=== PATIENT | female | born 1945 | race African-American/Black ===

== ENCOUNTER 2018-10-13 15:48 | Inpatient (IN) | payer MEDICARE, MEDICAID ==
[~2018-10-13] VITALS: Ht 160 cm; Wt 46.7 kg
--- NOTE | 2018-10-13 15:50 | NUR ---
ED Nurse Note: pt was brought in by ambulance from [facility] c/o of edema of right ankle from fall on august, pt denies pain. per ems, pt was send in the ed by dr che for evaluation of the fx. pt is seen by ermd. will continue to monitor.
--- NOTE | 2018-10-13 15:54 | Emergency Room Report ---
History of Present Illness General Chief Complaint: Lower Extremity Injury Source: Patient, Medical Record, EMS Present Illness HPI 73-year-old female presents with right ankle pain that started 09/07/2018, patient had a fall, she was seen in outside hospital, she was splinted with a stirrup, she endorses right ankle pain worsened with movement, sharp in nature, severity is moderate, alleviated with rest, aggravated by movement. Patient brought to the hospital for operative management, patient currently has no complaints other than the right ankle pain. Allergies: Coded Allergies: ASPIRIN (Verified Allergy, Unknown, 10/13/18) Patient History Past Medical History: see triage record Last Menstrual Period: menopause Now: No Reviewed Nursing Documentation: PMH: Agreed; PSxH: Agreed Review of Systems All Other Systems: negative except mentioned in HPI Physical Exam Vital Signs Date Time Temp Pulse Resp B/P (MAP) Pulse Ox O2 Delivery O2 Flow Rate FiO2 10/13/18 15:43 98.1 78 16 135/83 (100) 97 Room Air Sp02 EP Interpretation: reviewed, normal General Appearance: well appearing, no apparent distress, alert Head: normocephalic, atraumatic Eyes: bilateral eye PERRL, bilateral eye EOMI ENT: uvula midline, moist mucus membranes Neck: supple, thyroid normal, supple/symm/no masses Respiratory: lungs clear, no respiratory distress, no retraction, no accessory muscle use Cardiovascular #1: normal peripheral pulses, regular rate, rhythm, no edema, no gallop, no murmur Gastrointestinal: non tender, soft, no guarding, no rebound Musculoskeletal: other - Lower extreme knee: 2+ PT DP, compartments are soft, tenderness to palpation medial malleolus, right ankle, minimal swelling, sensation is grossly intact, patient is able to fire EHL Neurologic: alert, oriented x3 Psychiatric: mood/affect normal Skin: no rash, warm/dry Medical Decision Making Diagnostic Impression: Primary Impression: Bimalleolar fracture of right ankle Qualified Codes: S82.841A - Displaced bimalleolar fracture of right lower leg , initial encounter for closed fracture ER Course 73-year-old female presents with right ankle pain, patient with a bimalleolar fracture, preoperative labs are ordered, blood work was drawn, x-rays show bimalleolar fracture, Ortho was consulted, patient to be admitted to med Surg Spoke with Dr. Fuentes who will admit patient Dr. Damián lala will consult Laboratory Tests Test 10/13/18 15:50 White Blood Count 4.6 K/UL (4.8-10.8) L Red Blood Count 4.13 M/UL (4.20-5.40) L Hemoglobin 11.9 G/DL (12.0-16.0) L Hematocrit 37.8 % (37.0-47.0) Mean Corpuscular Volume 92 FL (80-99) Mean Corpuscular Hemoglobin 28.9 PG (27.0-31.0) Mean Corpuscular Hemoglobin Concent 31.6 G/DL (32.0-36.0) L Red Cell Distribution Width 13.5 % (11.6-14.8) Platelet Count 180 K/UL (150-450) Mean Platelet Volume 6.6 FL (6.5-10.1) Neutrophils (%) (Auto) 41.4 % (45.0-75.0) L Lymphocytes (%) (Auto) 46.3 % (20.0-45.0) H Monocytes (%) (Auto) 8.6 % (1.0-10.0) Eosinophils (%) (Auto) 2.2 % (0.0-3.0) Basophils (%) (Auto) 1.4 % (0.0-2.0) Prothrombin Time 10.3 SEC (9.30-11.50) Prothrombin Time INR 1.0 (0.9-1.1) PTT 28 SEC (23-33) Sodium Level 141 MMOL/L (136-145) Potassium Level 4.1 MMOL/L (3.5-5.1) Chloride Level 107 MMOL/L (98-107) Carbon Dioxide Level 28 MMOL/L (21-32) Anion Gap 6 mmol/L (5-15) Blood Urea Nitrogen 7 mg/dL (7-18) Creatinine 0.8 MG/DL (0.55-1.30) Estimate Glomerular Filtration Rate mL/min (>60) Glucose Level 92 MG/DL (74-106) Calcium Level 9.7 MG/DL (8.5-10.1) Total Bilirubin 0.2 MG/DL (0.2-1.0) Aspartate Amino Transferase (AST) 28 U/L (15-37) Alanine Aminotransferase (ALT) 37 U/L (12-78) Alkaline Phosphatase 105 U/L (46-116) Total Protein 6.9 G/DL (6.4-8.2) Albumin 3.2 G/DL (3.4-5.0) L Globulin 3.7 g/dL Albumin/Globulin Ratio 0.9 (1.0-2.7) L EKG Diagnostic Results EKG Time: 15:53 EP Interpretation: NSR, rate 69, QTc 426, no acute ST elevations, normal axis Rate: normal Rhythm: NSR ST Segments: no acute changes Chest X-Ray Diagnostic Results Chest X-Ray Diagnostic Results : Chest X-Ray Ordered: Yes # of Views/Limited/Complete: 1 View Indication: Other - preop EP Interpretation: Yes Interpretation: no consolidation, no effusion, no pneumothorax, no acute cardiopulmonary disease Impression: No acute disease Electronically Signed by: Ernesto Carlos MD Other X-Ray Diagnostic Results Other X-Ray Diagnostic Results #1: X-Ray ordered: Right tibia fibula # of Views/Limited Vs Complete: 2 View Indication: Pain EP Interpretation: Yes Interpretation: other Impression: Other - Bimalleolar fracture Electronically Signed by: Ernesto Carlos MD Other X-Ray Diagnostic Results #2: X-Ray ordered: Right Ankle # of Views/Limited Vs Complete: 3 View Indication: Pain EP Interpretation: Yes Interpretation: other - BiMalleolar fracture Impression: Other - Bimalleolar fracture Electronically Signed by: Ernesto Carlos MD Last Vital Signs Date Time Temp Pulse Resp B/P (MAP) Pulse Ox O2 Delivery O2 Flow Rate FiO2 10/13/18 15:43 98.1 78 16 135/83 (100) 97 Room Air Disposition: ADMITTED INPATIENT Condition: Stable Ernesto Carlos MD Oct 13, 2018 15:54
--- NOTE | 2018-10-13 15:55 | NUR ---
ED Nurse Note: with new order from don, iv g 22 stablished on pt left wrsit, with good blood return, blood drawn and was sent to lab.
--- NOTE | 2018-10-13 15:56 | NUR ---
ED Nurse Note: xray on bedside
[2018-10-13] MEDS ORDERED: PEPCID AC20 M2 PO (16:04)
[2018-10-13] MEDS ORDERED: MILK OF MA400 MG/51 ORAL (16:04)
[2018-10-13] MEDS ORDERED: DICLOFENAC 1% (16:04)
[2018-10-13] MEDS ORDERED: FLEET ENEMA133 ML RECTAL (16:04)
[2018-10-13] MEDS ORDERED: LOVENOX10 M4 SUBQ (16:04)
[2018-10-13] MEDS ORDERED: BISACODYL5 MG RECTAL (16:04)
[2018-10-13] MEDS ORDERED: OXYBUTYNIN CHLOR5 M1 ORAL (16:04)
[2018-10-13] MEDS ORDERED: PLAVIX75 MG ORAL (16:04)
[2018-10-13] MEDS ORDERED: GABAPENTIN100 MG ORAL (16:04)
[2018-10-13] MEDS ORDERED: FLONASE ALLERG9.9 ML NS (16:04)
[2018-10-13] MEDS ORDERED: ATORVASTATIN CA40 MG ORAL (16:04)
[2018-10-13] MEDS ORDERED: NORCO 5-325 TA1 EACH ORAL (16:04)
[2018-10-13] MEDS ORDERED: DOCUSATE SODIU100 MG ORAL (16:04)
[2018-10-13] MEDS ORDERED: ZYRTEC10 MG ORAL (16:04)
[2018-10-13] MEDS ORDERED: ACETAMINOPHEN325 M1 ORAL (16:04)
--- NOTE | 2018-10-13 16:04 | NUR ---
ED Nurse Note: pt went to ct with tech
[2018-10-13 16:11] LABS: ANION GAP 6 mmol/L (5-15); BASOPHILS % (AUTO) 1.4 % (0.0-2.0); BLOOD UREA NITROGEN 7 mg/dL (7-18); CALCIUM 9.7 MG/DL (8.5-10.1); CARBON DIOXIDE 28 MMOL/L (21-32); CHLORIDE 107 MMOL/L (98-107); CREATININE 0.8 MG/DL (0.55-1.30); EOSINOPHILS % (AUTO) 2.2 % (0.0-3.0); HEMATOCRIT 37.8 % (37.0-47.0); HEMOGLOBIN 11.9 G/DL (12.0-16.0); LYMPHOCYTES % (AUTO) 46.3 % (20.0-45.0); MEAN CORPUSCULAR VOLUME 92 FL (80-99); MONOCYTES % (AUTO) 8.6 % (1.0-10.0); NEUTROPHILS % (AUTO) 41.4 % (45.0-75.0); PLATELET COUNT 180 K/UL (150-450); POTASSIUM 4.1 MMOL/L (3.5-5.1); RED BLOOD COUNT 4.13 M/UL (4.20-5.40); RED CELL DISTRIBUTION WIDTH 13.5 % (11.6-14.8); SODIUM 141 MMOL/L (136-145); WHITE BLOOD COUNT 4.6 K/UL (4.8-10.8)
[2018-10-13 16:15] LABS: ALANINE AMINOTRANSFERASE 37 U/L (12-78); ALBUMIN 3.2 G/DL (3.4-5.0); ALBUMIN/GLOBULIN RATIO 0.9 (1.0-2.7); ALKALINE PHOSPHATASE 105 U/L (46-116); ASPARTATE AMINO TRANSFERASE 28 U/L (15-37); BILIRUBIN,TOTAL 0.2 MG/DL (0.2-1.0)
--- NOTE | 2018-10-13 16:32 | NUR ---
ED Nurse Note: pt went back from ct with tech
--- NOTE | 2018-10-13 16:51 | NUR ---
ED Nurse Note: ermd on bedside talking with pt and pt daughter regarding the plan of care and the posible admission and pt able to verbalize understanding. will continue to monitor.
--- NOTE | 2018-10-13 17:53 | NUR ---
ED Nurse Note: pt complaining of pain on the iv site, iv dc and g 20 iserted to pt right ac, pt able to tolerate well. will continue to monitor.
--- NOTE | 2018-10-13 18:40 | NUR ---
NURSE NOTES: Dr. Fuentes called and ordered No DVT for contraindication, same code status from SNF, same diet from SNF, same meds from SNF. Noted and carried out.
--- NOTE | 2018-10-13 19:30 | NUR ---
ED Nurse Note: Patient was admited to [facility] due to Bimalleolar fracture. AAO x4, VSS at this time, skin is dry warm to touch. Patient was transfered via gurney, with all belongings.
--- NOTE | 2018-10-13 19:58 | NUR ---
NURSE NOTES: Pt received on gurney, alert and oriented X 4, reg diet, pt has cell phone and tablet at the bedside, daughter at the bedside, received report to continue same meds from the SNF, same code status, no dvt, etc.
[2018-10-13 20:00] VITALS: BP 133/85
[2018-10-13] MEDS ORDERED: HYDROcodone/Acetamin 10/325 tab ORAL PRN (21:00)
[2018-10-13] MEDS ORDERED: Fleet's Enema 133ml RECTAL PRN (21:00)
[2018-10-13] MEDS ORDERED: Milk of Magnesia 30ml Ud ORAL PRN (21:00)
[2018-10-13] MEDS: Atorvastatin 20mg tab ORAL SCH (22:31)
[2018-10-13] MEDS: HYDROcodone/Acetamin 5/325 tab ORAL PRN (22:32)
[2018-10-14] VITALS: BP 123/77
[2018-10-14 04:00] VITALS: BP 132/89
--- NOTE | 2018-10-14 07:15 | NUR ---
NURSE NOTES: WALKING ROUNDS DONE WITH OUTGOING RN. PATIENT AWAKE IN BED.RLE WITH SPLINT AND RAFAELA WRAP IN PLACE; C/D/I. CMS WNL. DENIES PAIN. QUESTIONS ANSWERED NEEDS MET. DISCUSSED PLAN OF CARE FO THE DAY.VERBALIZED UNDERSTANDING. BED IN LOWEST AND LOCKED POSITION. CALL LIGHT WITHIN REACH.
--- NOTE | 2018-10-14 07:32 | NUR ---
HAND-OFF: Report given to JACK Gardner.
[2018-10-14 08:00] VITALS: BP 139/94
[2018-10-14] MEDS: HYDROcodone/Acetamin 5/325 tab ORAL PRN ×2 (08:09→14:57)
[2018-10-14] MEDS: Oxybutynin 5mg tab ORAL SCH ×2 (09:24→18:15)
[2018-10-14] MEDS: Flonase Nasal Inhaler 16gm NASAL SCH (09:24)
[2018-10-14] MEDS: Docusate 100mg cap ORAL SCH ×2 (09:24→18:15)
[2018-10-14 11:52] LABS: BASOPHILS % (AUTO) 1.1 % (0.0-2.0); EOSINOPHILS % (AUTO) 2.1 % (0.0-3.0); HEMATOCRIT 34.7 % (37.0-47.0); LYMPHOCYTES % (AUTO) 39.2 % (20.0-45.0); MEAN CORPUSCULAR VOLUME 90 FL (80-99); MONOCYTES % (AUTO) 10.5 % (1.0-10.0); NEUTROPHILS % (AUTO) 47.1 % (45.0-75.0); PLATELET COUNT 171 K/UL (150-450); RED BLOOD COUNT 3.85 M/UL (4.20-5.40); RED CELL DISTRIBUTION WIDTH 13.4 % (11.6-14.8); WHITE BLOOD COUNT 4.1 K/UL (4.8-10.8)
[2018-10-14 12:00] VITALS: BP 123/81
[2018-10-14 16:00] VITALS: BP 127/83
--- NOTE | 2018-10-14 17:30 | NUR ---
NURSE NOTES: PATIENT REMAINS STABLE. REQUIRES NORCO 5 MG PO FOR PAIN MANAGEMENT OF RLE. SEEN BY DR. ERVIN. OBTAINED CONSENT FOR RIGHT ORIF FOR DR. DUNN. VSS AFEBRILE.
--- NOTE | 2018-10-14 17:44 | NUR ---
CASE MANAGEMENT: REVIEW 73Y/F BIBA FROM [facility] CC: EDEMA RIGHT ANKLE SI: BIMALLEOLAR FRACTURE OF RIGHT ANKLE T 98.1 HR 78 RR 16 BP 135/83 SAT 97% ROOM AIR WBC 4.6 X-RAY ANKLE PENDING IS: IV ACCESS / SALINE LOCK NPO PATIENT ADMITTED TO MED/SURG UNIT 10/13/2018 DCP: PATIENT IS FROM [facility]
--- NOTE | 2018-10-14 18:56 | NUR ---
HAND-OFF: Report given to KY SANTIAGO.
--- NOTE | 2018-10-14 19:20 | NUR ---
NURSE NOTES: Received report & pt from JACK Gardner. Pt lying in bed, a&ox4, in room air. No s/s of acute distress & no c/o pain at this time. Pt NPO after breakfast tomorrow for procedure & pt aware. Dressing C/D/I. IV site intact & S/L'd. Bed in lowest position, call light within reach. Will continue tomorrow.
[2018-10-14 20:00] VITALS: BP 133/82
[2018-10-14] MEDS: Atorvastatin 20mg tab ORAL SCH (20:41)
[2018-10-15 04:00] VITALS: BP 125/83
[2018-10-15] MEDS: D5 1/2NS 1,000 ML IV SCH ×3 (05:09→18:00)
--- NOTE | 2018-10-15 07:30 | NUR ---
HAND-OFF: Report given to JACK Roach. Rounds done. Pt in stable condition. Told pt that surgery will be @ 1700 today & pt verbalized understanding. Reminded pt NPO after breakfast.
--- NOTE | 2018-10-15 07:58 | NUR ---
NURSE NOTES: pt awake, able to make needs known. NPO status after breakfast reinforced. No complaints of pain at this time.
[2018-10-15 08:15] LABS: ANION GAP 10 mmol/L (5-15); BLOOD UREA NITROGEN 7 mg/dL (7-18); CALCIUM 9.7 MG/DL (8.5-10.1); CARBON DIOXIDE 26 MMOL/L (21-32); CHLORIDE 106 MMOL/L (98-107); CREATININE 0.8 MG/DL (0.55-1.30); POTASSIUM 3.9 MMOL/L (3.5-5.1); SODIUM 141 MMOL/L (136-145)
[2018-10-15] MEDS: Flonase Nasal Inhaler 16gm NASAL SCH (09:00)
[2018-10-15] MEDS: Oxybutynin 5mg tab ORAL SCH ×2 (09:00→18:42)
[2018-10-15] MEDS: Docusate 100mg cap ORAL SCH (09:00)
--- NOTE | 2018-10-15 11:00 | History and Physical Report ---
DATE OF ADMISSION: 10/13/2018 HISTORY OF PRESENT ILLNESS: The patient is being admitted for right distal tibial-fibular fracture, status post fall and syncope. The patient fractured it according to her in August of this year when she had a syncopal episode. It is on the right distal tibia fibula. Dr. Surendra Steel is consulted. The patient also has apparently history of alcohol abuse and history of seizure disorder, and according to the patient, has a history of status post CVA and hypertension, hyperlipidemia, and status post NV. The patient denies headache. Denies nausea, vomiting, or diarrhea. Does have pain in the right lower extremity due to fracture. Denies chest pain. PAST MEDICAL HISTORY: Significant for CAD, hypertension, hyperlipidemia, status post NV, status post TIA, history of alcoholic seizures, GERD, constipation, and hyperlipidemia. PAST SURGICAL HISTORY: Hysterectomy and left knee surgery. MEDICATIONS: Tylenol, Lipitor, , Colace, famotidine, gabapentin, and oxybutynin. ALLERGIES: . FAMILY HISTORY: Does have a history of diabetes and hypertension. SOCIAL HISTORY: She has history of alcohol abuse and history of smoking. No history of drug abuse. REVIEW OF SYSTEMS: HEENT: Denies headaches. RESPIRATORY: Denies shortness of breath. Denies cough. CARDIOVASCULAR: Denies chest pain or orthopnea. GASTROINTESTINAL: Denies nausea, vomiting, or diarrhea. EXTREMITIES: Has . CENTRAL NERVOUS SYSTEM: Denies change in vision or speech pattern. PHYSICAL EXAMINATION: VITAL SIGNS: Temperature 98.2, pulse 75, blood pressure 139/94. HEENT: PERRLA. NECK: Supple. No lymphadenopathy. CHEST: Clear to auscultation. CARDIOVASCULAR: Regular rate and rhythm. No murmurs or extra sounds. GASTROINTESTINAL: Soft, nontender, and nondistended. No organomegaly. EXTREMITIES: No edema. Reflexes are equal on both sides. . NEUROLOGIC: Oriented x2. . LABORATORY DATA: . ASSESSMENT AND PLAN: Right distal tibia fibular fracture. Orthopedic has been consulted. and I have also informed Dr. . That patient needs to be cleared by gamer, Dr. An and neurologist, Dr. Rajan procedure . Again, the clearance of this surgery will be deferred to Dr. An given the patient's cardiac history and 03:21 as well as we will defer to Dr. Rajan given history of CVA. consultants are Dr. Steel, Dr. Rajan and Dr. An. Akira Fuentes M.D. DR: JANETH JOB#: [id number] CC:
[2018-10-15 12:00] VITALS: BP 136/87
--- NOTE | 2018-10-15 12:08 | Cardiology Report ---
APPROVED REPORT EXAM: Two-dimensional and M-mode echocardiogram with Doppler and color Doppler. INDICATION OTHER M-Mode DIMENSIONS IVSd1.2 (0.7-1.1cm)Left Atrium (MM)3.6 (1.6-4.0cm) LVDd4.8 (3.5-5.6cm)Aortic Root2.9 (2.0-3.7cm) PWd1.1 (0.7-1.1cm)Aortic Cusp Exc.1.7 (1.5-2.0cm) IVSs1.6 cm LVDs3.2 (2.5-4.0cm) PWs1.4 cm Normal left ventricular chamber size, systolic function and wall motion . Left ventricular ejection fraction estimated to be 60-65%. No evidence left ventricular hypertrophy. No evidence of pericardial effusion. All other cardiac chamber sizes are within normal limits. Aortic valve calcification with normal cusp excursion . Mildly thickened mitral valve leaflets with normal excursion. Mild mitral annulus and aortic root calcification. Pulmonic valve not well visualized. IVC at normal size with physiologic collapse . A color flow and spectral Doppler study was performed and revealed: Mild aortic insufficiency . Mitral diastolic velocities suggest reduced left ventricular relaxation c/w mild LV diastolic dysfunction (Grade I ) Mild mitral regurgitation. Mild to moderate tricuspid regurgitation. Tricuspid systolic velocities suggests peak right ventricular systolic pressure of 20mmHg.
--- NOTE | 2018-10-15 12:49 | Cardiac Electrophysiology PN ---
Subjective Subjective patient seen and examined. Consult dictated.[id number] ECG NSR and no ischemia or old WA. Echo Nl EF 65% No clinical CHF Ok to proceed with ORIF right tib/fib Objective Last 24 Hour Vital Signs Date Time Temp Pulse Resp B/P (MAP) Pulse Ox O2 Delivery O2 Flow Rate FiO2 10/15/18 09:00 Room Air 10/15/18 04:00 98.1 77 15 125/83 (97) 97 10/14/18 21:00 Room Air 10/14/18 20:00 98.2 71 16 133/82 (99) 98 10/14/18 16:00 97.6 76 21 127/83 (98) 98 10/14/18 15:27 97.9 Intake and Output 10/14/18 10/15/18 18:59 06:59 Intake Total 716 ml 716 ml Output Total 350 ml Balance 716 ml 366 ml Intake Oral 716 ml 476 ml Other 240 ml Output Urine Total 350 ml # Voids 3 4 # Bowel Movements 3 2 Laboratory Tests Test 10/15/18 05:26 Sodium Level 141 MMOL/L (136-145) Potassium Level 3.9 MMOL/L (3.5-5.1) Chloride Level 106 MMOL/L (98-107) Carbon Dioxide Level 26 MMOL/L (21-32) Anion Gap 10 mmol/L (5-15) Blood Urea Nitrogen 7 mg/dL (7-18) Creatinine 0.8 MG/DL (0.55-1.30) Estimat Glomerular Filtration Rate mL/min (>60) Glucose Level 78 MG/DL (74-106) Calcium Level 9.7 MG/DL (8.5-10.1) Microbiology Date/Time Source Procedure Growth Status 10/13/18 18:03 Nasal Nares MRSA Culture - Final NO METHICILLIN RESISTANT STAPH AUREUS... Complete 10/13/18 18:03 Rectum VRE Culture - Final NO VANCOMYCIN RESISTANT ENTEROCOCCUS ... Resulted 10/13/18 18:03 Rectum Pending Resulted Jose An MD Oct 15, 2018 12:49
--- NOTE | 2018-10-15 15:27 | NUR ---
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 98.1 HR 73 RR 15 B/P 125/75 IS: IVF D5NS @ 125ML/HR DITROPAN PO PEPCID PO LOPRESSOR PO MED/SURG STATUS
[2018-10-15] MEDS ORDERED: Succinylcholine 20mg/ml 10ml vial ONE (15:40)
--- NOTE | 2018-10-15 15:40 | NUR ---
NURSE NOTES: Pt down for surgery , daughter is at bedside. IV patent, no complaints of pain. Name tag verified consent reviewed
--- NOTE | 2018-10-15 15:47 | Consultation ---
History of Present Illness General Chief Complaint: Lower Extremity Injury Present Illness Allergies: Coded Allergies: MEPERIDINE (Verified Allergy, Severe, Anaphylaxis, 10/14/18) Beef (Verified Allergy, Intermediate, 10/14/18) ELEVATES BLOOD PRESSURE RICE (Verified Allergy, Intermediate, 10/14/18) DOES NOT DIGEST WELL. ASPIRIN (Verified Allergy, Unknown, 10/13/18) Medication History Scheduled Atorvastatin Calcium* (Atorvastatin Calcium*), 40 MG ORAL BEDTIME, (Reported) Clopidogrel Bisulfate* (Plavix*), 75 MG ORAL DAILY, (Reported) Docusate Sodium* (Docusate Sodium*), 100 MG ORAL TWICE A DAY, (Reported) Famotidine (Pepcid Ac), 20 MG PO BIDAC, (Reported) Fluticasone Propionate (Flonase Allergy Relief), 9.9 ML NS DAILY, (Reported) Gabapentin* (Gabapentin*), 200 MG ORAL BEDTIME, (Reported) Oxybutynin Chloride (Oxybutynin Chloride), 5 MG ORAL BID, (Reported) Scheduled PRN Acetaminophen* (Acetaminophen 325MG Tablet*), 325 MG ORAL Q6H PRN for Mild Pain (Pain Scale 1-3), (Reported) Bisacodyl* (Dulcolax*), 10 MG RECTAL DAILY PRN for Constipation, (Reported) Cetirizine Hcl* (Zyrtec*), 10 MG ORAL DAILY PRN for Dry Eyes, (Reported) Hydrocodone Bit/Acetaminophen 5-325* ([place] 5-325*), 1 TAB ORAL Q6H PRN for Moderate Pain (Pain Scale 4-6), (Reported) Magnesium Hydroxide* (Milk Of Magnesia*), 30 ML ORAL DAILY PRN for Constipation, (Reported) Na Phos,M-B/Na Phos,Di-Ba* (Fleet Enema*), 133 ML RECTAL DAILY PRN for Constipation, (Reported) Miscellaneous Medications [diclofenac1% jel], (Reported) Discontinued Medications Enoxaparin* (Lovenox*), 40 MG SUBQ DAILY, (Reported) Discontinued Reason: MD discontinued med Patient History Healthcare decision maker Resuscitation status Full Code Advanced Directive on File Physical Exam Last 24 Hour Vital Signs Date Time Temp Pulse Resp B/P (MAP) Pulse Ox O2 Delivery O2 Flow Rate FiO2 10/15/18 09:00 Room Air 10/15/18 04:00 98.1 77 15 125/83 (97) 97 10/14/18 21:00 Room Air 10/14/18 20:00 98.2 71 16 133/82 (99) 98 10/14/18 16:00 97.6 76 21 127/83 (98) 98 Intake and Output 10/14/18 10/15/18 18:59 06:59 Intake Total 716 ml 716 ml Output Total 350 ml Balance 716 ml 366 ml Intake Oral 716 ml 476 ml Other 240 ml Output Urine Total 350 ml # Voids 3 4 # Bowel Movements 3 2 Laboratory Tests Test 10/15/18 05:26 Sodium Level 141 MMOL/L (136-145) Potassium Level 3.9 MMOL/L (3.5-5.1) Chloride Level 106 MMOL/L (98-107) Carbon Dioxide Level 26 MMOL/L (21-32) Anion Gap 10 mmol/L (5-15) Blood Urea Nitrogen 7 mg/dL (7-18) Creatinine 0.8 MG/DL (0.55-1.30) Estimat Glomerular Filtration Rate mL/min (>60) Glucose Level 78 MG/DL (74-106) Calcium Level 9.7 MG/DL (8.5-10.1) Height (Feet): 5 Height (Inches): 3.00 Weight (Pounds): 211 Medications Current Medications Medications (Trade) Dose Ordered Sig/Jos Route PRN Reason Start Time Stop Time Status Last Admin Dose Admin Acetaminophen (Tylenol) 650 mg Q6H PRN ORAL Mild Pain/Temp > 100.5 10/13/18 21:00 11/12/18 20:59 Acetaminophen/ Hydrocodone Bitart ([place] 10/325) 1 tab Q6H PRN ORAL Severe Pain (Pain Scale 7-10) 10/13/18 21:00 10/20/18 20:59 10/15/18 00:45 Acetaminophen/ Hydrocodone Bitart ([place] 5/325) 1 tab Q6H PRN ORAL Moderate Pain (Pain Scale 4-6) 10/13/18 21:00 10/20/18 20:59 10/14/18 14:57 Atorvastatin Calcium (Lipitor) 40 mg BEDTIME ORAL 10/13/18 22:00 11/12/18 21:59 10/14/18 20:41 Bisacodyl (Dulcolax) 10 mg DAILYPRN PRN RECTAL Constipation 10/14/18 04:00 11/13/18 03:59 Cetirizine HCl (ZyrTEC) 10 mg DAILYPRN PRN ORAL Seasonal allergies 10/13/18 21:00 11/12/18 20:59 Clopidogrel Bisulfate (Plavix) 75 mg DAILY ORAL 10/14/18 09:00 11/13/18 08:59 10/14/18 09:24 Dextrose/Sodium Chloride 1,000 ml @ 125 mls/hr Q8H IV 10/15/18 06:00 11/14/18 05:59 10/15/18 05:09 Docusate Sodium (Colace) 100 mg TWICE A DAY ORAL 10/14/18 09:00 11/13/18 08:59 10/14/18 18:15 Famotidine (Pepcid) 20 mg BIAC ORAL 10/14/18 06:30 11/13/18 06:29 10/15/18 06:00 Fluticasone Propionate (Flonase) 2 spray DAILY NASAL 10/14/18 09:00 11/13/18 08:59 10/14/18 09:24 Gabapentin (Neurontin) 200 mg BEDTIME ORAL 10/13/18 22:00 11/12/18 21:59 10/14/18 20:41 Magnesium Hydroxide (Mom) 30 ml DAILYPRN PRN ORAL Constipation 10/13/18 21:00 11/12/18 20:59 Metoprolol Succinate (Toprol XL) 25 mg DAILY ORAL 10/16/18 09:00 11/15/18 08:59 Non-Formulary Medication (Non-Formulary Med) 1 ea DAILY ORAL 10/14/18 09:00 11/13/18 08:59 UNV Oxybutynin Chloride (Ditropan) 5 mg BID ORAL 10/14/18 09:00 11/13/18 08:59 10/14/18 18:15 Sodium Phosphate (Fleet's Sodium Phosl Enema) 133 ml DAILYPRN PRN RECTAL Constipation 10/13/18 21:00 11/12/18 20:59 Assessment/Plan Assessment/Plan: Hematology Consultation REQ MD: Akira Fuentes DOS: 10/15/18 RFC: Pre-procedure anemia, leukopenia ID 73-year-old female well known to me presents with right ankle pain that started 09/07/2018, patient had a fall, she was seen in outside hospital, she was splinted with a stirrup, she endorses right ankle pain worsened with movement, sharp in nature, severity is moderate, alleviated with rest, aggravated by movement. Patient brought to the hospital for operative management, patient currently has no complaints other than the right ankle pain. Potentially to undergo repair by ortho, was consulted in regards to low wbc and anemia w/u at this time, may need epo use. Allergies: ASPIRIN (Verified Allergy, Unknown, 10/13/18) Past Medical History: see triage record Last Menstrual Period: menopause Now: No Reviewed Nursing Documentation: PMH: Agreed; PSxH: Agreed Review of Systems All Other Systems: negative except mentioned in HPI Physical Exam Physical Exam: Vitals: reviewed General Appearance: NAD HEENT: normocephalic, atraumatic Neck: non-tender, normal alignment Respiratory/Chest: normal breath sounds bilaterally Cardiovascular/Chest: normal peripheral pulses, normal rate Abdomen: normal bowel sounds, soft, nontender Extremities: normal range of motion, Lower extreme knee: 2+ PT DP, compartments are soft, tenderness to palpation medial malleolus, right ankle, minimal swelling, sensation is grossly intact, patient is able to fire EHL Neurologic: alert, oriented x3 Labs: reviewed Imaging: noted Assessment and Recs: # Anemia of chronic disease (or of iron deficiency) due to underlying chronic medical issues, multifactorial --> Anemia workup has been ordered, rule out gi bleed --> No evidence of hemolysis is noted, peripheral smear has been reviewed. --> Hgb goal >7. Transfuse prn. --> Epogen or iron at this time is not particularly indicated (if hgb downtrends consider use of epogen/procrit) pre procedure --> Medications have been reviewed --> low threshold for gi evaluation in case has occult + # Leukopenia -- multiple etiologies could be related to underlying liver disease , medication-induced, infection versus viral syndrome --> peripheral smear has been ordered and does not show significant abnormalities --> Medications have been reviewed (can be due to lipitor) --> Continue to monitor for improvement, trend cbc --> Hep panel and HIV have been ordered --> US abd ordered to r/o cirrhosis and hepatosplenomegaly --> reverse isolation if ANC is <2000 # Bimalleolar fracture of right ankle - Displaced bimalleolar fracture of right lower leg, initial encounter for closed fracture --> per ortho management as with Dr. Steel # Hypoalbunenkia --> recommend improved po intake --> may need mirtazapine after sx # DVT ppx hep sq after sx The timing of this note does not necessarily reflect the time of the patient was seen. GREATLY APPRECIATE CONSULTATION. Tone Lenz MD Oct 15, 2018 15:47
[2018-10-15] MEDS ORDERED: NeoSporin Gu Irrig 1ml Amp IRRIG ONE (16:04)
[2018-10-15] MEDS ORDERED: Bacitracin 50000 Units Vial ONE (16:04)
[2018-10-15] MEDS ORDERED: Bupivacaine 0.25% Inj 30ml INJ ONE (16:04)
--- NOTE | 2018-10-15 16:37 | Operative Note - PDOC ---
Operative Note Operative Note Pre-op Diagnosis: right ankle fracture Procedure: see op report Post-op Diagnosis: same as pre-op plus Operative Findings: consistent w/pre-op dx studies Anesthesia: general Specimen: none Complications: none Condition: stable Estimated Blood Loss: minimal Implant(s) used?: Yes Andrew Steel MD Oct 15, 2018 16:37
--- NOTE | 2018-10-15 16:37 | Pre-Procedure Note/Attestation ---
Pre-Procedure Note/Attestation Complete Prior to Procedure Planned Procedure: right Procedure Narrative: ankle orif Indications for Procedure Pre-Operative Diagnosis: right ankle fracture Attestation I attest that I discussed the nature of the procedure; its benefits; risks and complications; and alternatives (and the risks and benefits of such alternatives ), prior to the procedure, with the patient (or the patient's legal pharmaceutical sales representative). I attest that, if there was a reasonable possibility of needing a blood transfusion, the patient (or the patient's legal pharmaceutical sales representative) was given the [facility] standardized written summary, pursuant to the [place] Blood Safety Act ([place] Health and Safety Code # 1645, as amended). I attest that I re-evaluated the patient just prior to the surgery and that there has been no change in the patient's H&P, except as documented below: Andrew Steel MD Oct 15, 2018 16:37
[2018-10-15] MEDS ORDERED: HYDROmorphone 1mg/ml Carpuject SUBQ PRN (16:45)
[2018-10-15] MEDS ORDERED: HYDROcodone/Acetamin 5/325 tab ORAL PRN (16:45)
[2018-10-15] MEDS ORDERED: Hydromorphone 0.5mg/0.5ml inj SUBQ PRN (16:45)
--- NOTE | 2018-10-15 17:55 | Anethesia Preoperative Eval ---
Anesthesia Pre-op PMH/ROS General Date of Evaluation: Oct 15, 2018 Time of Evaluation: 17:35 Anesthesiologist: tr ASA Score: ASA 3 Mallampati Score Class I : Soft palate, uvula, fauces, pillars visible Class II: Soft palate, uvula, fauces visible Class III: Soft palate, base of uvula visible Class IV: Only hard plate visible Mallampati Classification: Class III Surgeon: yovany Diagnosis: exam Surgical Procedure: exam under anesthesia Anesthesia History: none Family History: no anesthesia problems Allergies: Coded Allergies: MEPERIDINE (Verified Allergy, Severe, Anaphylaxis, 10/14/18) Beef (Verified Allergy, Intermediate, 10/14/18) ELEVATES BLOOD PRESSURE RICE (Verified Allergy, Intermediate, 10/14/18) DOES NOT DIGEST WELL. ASPIRIN (Verified Allergy, Unknown, 10/13/18) Patient NPO?: Yes NPO Date: Oct 15, 2018 NPO Time: 0930 Past Medical History Cardiovascular: Reports: HTN, other - seizure Endocrine: Reports: DM Other: obesity PSxH Narrative: left knee surgery Anesthesia Pre-op Phys. Exam Physician Exam Last Vital Signs Date Time Temp Pulse Resp B/P (MAP) Pulse Ox O2 Delivery O2 Flow Rate FiO2 10/15/18 12:00 98.2 76 20 136/87 (103) 98 10/15/18 09:00 Room Air Constitutional: NAD Neurologic: CN 2-12 intact Cardiovascular: RRR Respiratory: CTA Gastrointestinal: S/NT/ND Airway Exam Mallampati Score: Class III MO: full ROM: full Dentures: no upper, no lower Anesthesia Pre-op A/P Labs Chemistry Test 10/15/18 05:26 Sodium Level 141 MMOL/L (136-145) Potassium Level 3.9 MMOL/L (3.5-5.1) Chloride Level 106 MMOL/L (98-107) Carbon Dioxide Level 26 MMOL/L (21-32) Anion Gap 10 mmol/L (5-15) Blood Urea Nitrogen 7 mg/dL (7-18) Creatinine 0.8 MG/DL (0.55-1.30) Estimat Glomerular Filtration Rate mL/min (>60) Glucose Level 78 MG/DL (74-106) Calcium Level 9.7 MG/DL (8.5-10.1) Studies Pre-op Studies: EKG - sr Risk Assessment & Plan Assessment: general [place],Janis Bird [employer]AN Oct 15, 2018 17:55
--- NOTE | 2018-10-15 17:56 | Immediate Post-Op Evaluation ---
Immediate Post-Op Evalulation Immediate Post-Op Evalulation Procedure: exam under anesthesia Date of Evaluation: Oct 15, 2018 Time of Evaluation: 17:55 Nausea: No Vomiting: No Complications none Patient Status: awake, reacts, patent Hydration Status: adequate Drug: xray in the OR Janis Shipley CRNA Oct 15, 2018 17:56
--- NOTE | 2018-10-15 18:15 | NUR ---
NURSE NOTES: Pt remains off unit , surgery phoned to provide information that surgery did not occur. Awaiting report
--- NOTE | 2018-10-15 18:28 | NUR ---
NURSE NOTES: pt returned from surgery unit no procedure rendered. Dr Steel splint the area per report, fracture is old.
--- NOTE | 2018-10-15 19:36 | 48 Hour Post Anesthesia Eval ---
Post Anesthesia Evaluation Procedure: exam under anesthesia Date of Evaluation: Oct 15, 2018 Time of Evaluation: 19:35 Blood Pressure Systolic: 136 0: 87 Pulse Rate: 75 Respiratory Rate: 14 Airway: patent Nausea: No Vomiting: No Hydration Status: adequate Cardiopulmonary Status: stable Mental Status/LOC: patient returned to baseline Post-Anesthesia Complications: none Follow-up care needed: N/A Janis Shipley CRNA Oct 15, 2018 19:36
--- NOTE | 2018-10-15 19:45 | NUR ---
NURSE NOTES: Pt escorted to bedside commode. Daughter is at bedside. Follow up made with daughter for diflununac, pain gel. Pt states she does not want to inconvenience daughter to get the gel and does not needs it. Breathing room air stable condition per pt pain level is going down fast after [place] use
--- NOTE | 2018-10-15 19:45 | Consultation ---
DATE OF CONSULTATION: 10/15/2018 CARDIOLOGY CONSULTATION REASON FOR CONSULTATION: Management of hypertension and preoperative clearance. HISTORY OF PRESENT ILLNESS: The patient is a 73-year-old lady with history of hypertension, hyperlipidemia, and history of questionable myocardial infarction, as well as history of TIA and seizures and hyperlipidemia, was admitted after she had a fall resulting in right distal tibia-fibular fracture. The patient, in August of this year, had a fall as well and fractured it. It is on the distal right tibia-fibula. The patient was evaluated by Dr. Andrew Steel. Cardiology clearance is requested prior to the surgery. REVIEW OF SYSTEMS: Negative other than what was mentioned in the history of present illness. PAST MEDICAL HISTORY: As mentioned above. FAMILY HISTORY: Noncontributory. SOCIAL HISTORY: She lives at home. Does not smoke or drink alcohol. PHYSICAL EXAMINATION: VITAL SIGNS: Show blood pressure of 135/83, pulse 87, respirations 18, and she is afebrile. HEAD AND NECK: Shows no JVD or carotid bruits. LUNGS: Clear. CARDIOVASCULAR: Shows regular S1 and S2 with no gallop or murmur. ABDOMEN: Soft. EXTREMITIES: No pitting edema. Her right leg is in immobilizer. LABORATORY DATA: Labs show white count of 4.1, hemoglobin 11, hematocrit 34.7, and platelet count of 171,000. Sodium 141, potassium 3.9, BUN of 7, and creatinine 0.8. Her INR is 1. Her 12-lead EKG showed normal sinus rhythm and has a normal electrocardiogram. Her echocardiogram showed normal left ventricular systolic function with EF of 65%. ASSESSMENT/PLAN: 1. Hypertension. Blood pressure currently is stable. I will start the patient on low-dose beta-krystal to decrease the risk of postop atrial fibrillation. 2. Right tibia-fibula fracture after a fall. It is not clear whether the patient had syncope or it was a seizure episode. The patient's EKG is completely normal and her echocardiogram showed normal left ventricular systolic function. The patient is lying flat in bed without any shortness of breath. The patient is stable from cardiac standpoint to undergo the above-mentioned surgery. 3. Hyperlipidemia. On Lipitor 40 mg daily. 4. Questionable coronary artery disease. The patient is on Plavix and Lipitor. The patient denies any prior myocardial infarction and her EKG does not show any prior myocardial infarctions and is nonischemic. 5. History of seizure disorder. Thank you very much, Dr. Fuentes, for allowing me to participate in the care of this patient. Please do not hesitate to contact me for any questions regarding my evaluation. Jose An M.D. DR: JOHN JOB#: [id number] CC:
--- NOTE | 2018-10-15 19:48 | NUR ---
NURSE NOTES: Received patient in bed, awake, alert, oriented x4, able to make her needs known, patient is able to use a bedside commode, on room air, non weight bearing on the right ankle , VSS, afebrile. IV site clean, dry and intact. No acute distress noted, VSS, afebrile. Call light is within reach, bed is in low position, locked and alarm is on. Will continue to monitor for comfort and safety.
--- NOTE | 2018-10-15 19:48 | NUR ---
HAND-OFF: Report given to Rose SANTIAGO.
[2018-10-15 20:00] VITALS: BP 134/81
[2018-10-15] MEDS: Atorvastatin 20mg tab ORAL SCH (20:50)
--- NOTE | 2018-10-15 23:01 | General Progress Note ---
Assessment/Plan Problem List: (1) Bimalleolar fracture of right ankle ICD Codes: S82.841A - Displaced bimalleolar fracture of right lower leg, initial encounter for closed fracture SNOMED: 131237079 Qualifiers: Qualified Codes: S82.841A - Displaced bimalleolar fracture of right lower leg, initial encounter for closed fracture Status: progressing Assessment/Plan: dr pedroza took to or and told me that joint was stable and no surgey needed to be done pain control consulted podiatry for dista tib fib fracture Subjective ROS Limited/Unobtainable: Yes Allergies: Coded Allergies: MEPERIDINE (Verified Allergy, Severe, Anaphylaxis, 10/14/18) Beef (Verified Allergy, Intermediate, 10/14/18) ELEVATES BLOOD PRESSURE RICE (Verified Allergy, Intermediate, 10/14/18) DOES NOT DIGEST WELL. ASPIRIN (Verified Allergy, Unknown, 10/13/18) Objective Last 24 Hour Vital Signs Date Time Temp Pulse Resp B/P (MAP) Pulse Ox O2 Delivery O2 Flow Rate FiO2 10/15/18 21:51 Room Air 10/15/18 20:00 98.9 81 18 134/81 (98) 10/15/18 19:36 75 14 10/15/18 12:00 98.2 76 20 136/87 (103) 98 10/15/18 09:00 Room Air 10/15/18 04:00 98.1 77 15 125/83 (97) 97 Intake and Output 10/14/18 10/15/18 19:00 07:00 Intake Total 716 ml 716 ml Output Total 350 ml Balance 716 ml 366 ml Intake Oral 716 ml 476 ml Other 240 ml Output Urine Total 350 ml # Voids 3 4 # Bowel Movements 3 2 Laboratory Tests 10/15/18 05:26: Sodium Level 141, Potassium Level 3.9, Chloride Level 106, Carbon Dioxide Level 26, Anion Gap 10, Blood Urea Nitrogen 7, Creatinine 0.8, Estimat Glomerular Filtration Rate , Glucose Level 78, Calcium Level 9.7 Height (Feet): 5 Height (Inches): 3.00 Weight (Pounds): 211 Neck: supple Cardiovascular: normal rate Respiratory/Chest: lungs clear Akira Fuentes MD Oct 15, 2018 23:01
[2018-10-15] MEDS: ceFAZolin sod 1 GM in D5W 55 ML IV SCH (23:16)
[2018-10-16] VITALS: BP 129/79
--- NOTE | 2018-10-16 00:15 | Consultation ---
DATE OF CONSULTATION: SUBJECTIVE: The patient is a 73-year-old female who was seen at outside facility diagnosed with left ankle fracture. Subsequently, she was placed in a splint subsequently was brought in to the ER. Orthopedic consultation was obtained for further care and recommendation. PAST MEDICAL HISTORY: Significant for coronary artery disease, hypertension, hyperlipidemia, TIA, alcoholic seizure disorder, GERD. Diabetes. PAST SURGICAL HISTORY: Hysterectomy. MEDICATIONS: Chart. ALLERGIES: None. FAMILY HISTORY: Noncontributory. PHYSICAL EXAMINATION: GENERAL: The patient is alert and oriented. She is resting comfortably on bed. VITAL SIGNS: Afebrile. Stable vital signs. EXTREMITIES: Right ankle examination shows a coaptation brace in place. There is lateral medial malleolus. Posterior calf is soft. No skin blisters. IMAGING STUDIES: Show a bimalleolar ankle fracture. Mortise is well maintained. DISCUSSION: At this point, given her situation would recommend her diabetes I think it is going to be difficult to mobilize her in a short-leg cast. She is relatively healthy and pretty alert and oriented. She does have some issues with her right and left knee. At this point, had gone over treatment options, one option is cast immobilization and given the diabetes, it may take several months to weeks for this to heal. Alternatively, we can consider open reduction and fixation with plate fixation of the lateral malleolus and screw fixation of medial malleolus provide her adequate mobilization in terms of weightbearing. She is leaning more towards fixing it. Risks, limitations, expectations, and complications of procedure were discussed in detail. All questions addressed. We will proceed with surgery based, which was going forward. Andrew Steel M.D. DR: Luciana JOB#: [id number] CC:
--- NOTE | 2018-10-16 01:00 | Operative Note - Dictated ---
DATE OF OPERATION: 10/15/2018 PREOPERATIVE DIAGNOSIS: Right lateral ankle fracture dislocation. POSTOPERATIVE DIAGNOSIS: Right lateral ankle fracture dislocation. PROCEDURE: 1.Manipulation under anesthesia, right ankle fracture. 2. Closed reduction and treatment of right bimalleloar ankle fracture SURGEON: Andrew Steel M.D. ANESTHESIA: MAC. INDICATION OF THE PROCEDURE: The patient is a 73-year-old female, who approximately 5 weeks ago sustained an ankle fracture. The patient was having difficulty and pain. She had a possible delayed healing nonunion given the comorbidities and the fact that it was 5 weeks. I discussed whether that we proceeded with examination of anesthesia with external rotation if there was displacement or widening of the mortise. We will proceed with formal open reduction and internal fixation at the mortise was well maintained we continue conservative treatment given that it has been already 5 weeks. DESCRIPTION OF PROCEDURE: After informed consent was obtained the patient was placed under monitored anesthesia control. The patient was carefully placed in the operating room table. Imaging studies of the ankle were then performed, which showed a distal fibula, transverse fibula fracture with a fracture of the medial malleolus space was relatively well-maintained both the medial lateral gutters. Once this was confirmed external rotation drawer test was performed. The patient did discomfort however there was no widening of the clear space. ASSESSMENT: Right ankle fracture dislocation. DISCUSSION: At this point, given that she does have gross displacement the like the fracture is healing but is not completely healed. She is little slow to heal given her comorbidities and therefore what I recommend is continue immobilization in a CAM walker boot and nonweightbearing for another 3 weeks. At that point, we can repeat the imaging studies. If there is further callus formation across the fracture site or from a clinical point of view she has decreased pain particularly the medial lateral fracture sites then she can begin some gradual weightbearing. She has some unclear history of diabetes and then may make it difficult to begin physical therapy and weightbearing as good as we would like. Andrew Steel M.D. DR: Luciana JOB#: [id number] CC: MARNI
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
[2018-10-16 04:00] VITALS: BP 140/83
[2018-10-16] MEDS: D5 1/2NS 1,000 ML IV SCH (05:40)
[2018-10-16] MEDS: ceFAZolin sod 1 GM in D5W 55 ML IV SCH (06:00)
[2018-10-16 06:20] LABS: EOSINOPHILS % (AUTO) 2.3 % (0.0-3.0); HEMATOCRIT 34.1 % (37.0-47.0); HEMOGLOBIN 10.8 G/DL (12.0-16.0); LYMPHOCYTES % (AUTO) 40.4 % (20.0-45.0); MEAN CORPUSCULAR VOLUME 92 FL (80-99); MONOCYTES % (AUTO) 9.4 % (1.0-10.0); NEUTROPHILS % (AUTO) 44.9 % (45.0-75.0); PLATELET COUNT 169 K/UL (150-450); RED BLOOD COUNT 3.73 M/UL (4.20-5.40); RED CELL DISTRIBUTION WIDTH 14.4 % (11.6-14.8); WHITE BLOOD COUNT 4.5 K/UL (4.8-10.8)
[2018-10-16 06:24] LABS: ANION GAP 5 mmol/L (5-15); BLOOD UREA NITROGEN 8 mg/dL (7-18); CALCIUM 9.2 MG/DL (8.5-10.1); CARBON DIOXIDE 27 MMOL/L (21-32); CHLORIDE 110 MMOL/L (98-107); CREATININE 0.7 MG/DL (0.55-1.30); POTASSIUM 3.8 MMOL/L (3.5-5.1); SODIUM 142 MMOL/L (136-145)
--- NOTE | 2018-10-16 06:58 | NUR ---
HAND-OFF: Report given to Mike SANTIAGO.
--- NOTE | 2018-10-16 07:39 | NUR ---
NURSE NOTES: Received report from JACK Rose. The patient is sleeping on the bed without acute distress or shortness of breath. The patient's right ankle cast is clean and intact, and circulation on right foot is intact. Per night nurse, DVT prophylaxis is contraindicated per Dr. Fuentes but will follow up. Per night nurse, the patient did not do surgery for right ankle fracture on 10/15/2018 since it is not active but healing fracture. IV is intact and patent. The patient's bed in the lowest position, call light in reach, and fall and aspiration precaution reinforced. Will continue plan of care.
[2018-10-16 08:00] VITALS: BP 161/95
--- NOTE | 2018-10-16 08:23 | NUR ---
NURSE NOTES: Per Dr. Lenz's note, heparin sc for dvt prophylasix after surgery. The patient got cancelled for the surgery on 10/15/2018. Notified Dr. Lenz regarding cancellation of the surgery. Will carry out the order as soon as receives it. Will continue plan of care.
--- NOTE | 2018-10-16 08:30 | NUR ---
NURSE NOTES: Dr. Lenz ordered Heparin 5000 unit sq q8hr for DVT prophylaxis. Will carry out the order.
[2018-10-16] MEDS ORDERED: Docusate Sod/Senna tab ORAL SCH (09:00)
[2018-10-16] MEDS: Oxybutynin 5mg tab ORAL SCH ×2 (09:03→17:29)
[2018-10-16] MEDS: Docusate 100mg cap ORAL SCH ×3 (09:03→17:29)
[2018-10-16] MEDS: Flonase Nasal Inhaler 16gm NASAL SCH (09:03)
[2018-10-16] MEDS: Metoprolol Succinate XL 25mg tab ORAL SCH (09:04)
[2018-10-16] MEDS: Heparin 5000 units/ml inj SUBQ SCH ×2 (09:07→16:14)
--- NOTE | 2018-10-16 10:48 | Diagnostic Imaging Report ---
Indication: Right ankle pain Comparison: 10/30/2018 Findings: 2 views of the right ankle obtained. The study is limited as obtained 2 oblique frontal projections. There is no lateral view. Again there is demonstration of bimalleolar fractures. Soft tissue swelling noted. Osteopenia demonstrated which may be due to hyperemia and/or disuse. IMPRESSION: No change from the prior study. Current exam is very limited.
[2018-10-16 12:00] VITALS: BP 159/92
--- NOTE | 2018-10-16 12:18 | Cardiac Electrophysiology PN ---
Assessment/Plan Assessment/Plan 1. Hypertension. Blood pressure currently is stable on low-dose beta-krystal to decrease the risk of postop atrial fibrillation. 2. Right tibia-fibula fracture after a fall. It is not clear whether the patient had syncope or it was a seizure episode. The patient's EKG is completely normal and her echocardiogram showed normal left ventricular systolic function. The patient is lying flat in bed without any shortness of breath. The patient is stable from cardiac standpoint to undergo the above-mentioned surgery but apparently now there is no need for surgery . 3. Hyperlipidemia. On Lipitor 40 mg daily. 4. Questionable coronary artery disease. The patient is on Plavix and Lipitor. The patient denies any prior myocardial infarction and her EKG does not show any prior myocardial infarctions and is nonischemic. 5. History of seizure disorder. EDWARDO RN Subjective Subjective No CP or SOB. Ortho felt no need for surgery at this time. Objective Last 24 Hour Vital Signs Date Time Temp Pulse Resp B/P (MAP) Pulse Ox O2 Delivery O2 Flow Rate FiO2 10/16/18 09:04 72 161/95 10/16/18 09:00 Room Air 10/16/18 08:00 98.1 72 18 161/95 (117) 10/16/18 04:00 98.4 79 17 140/83 (102) 10/16/18 00:00 98.6 76 17 129/79 (96) 10/15/18 21:51 Room Air 10/15/18 20:00 98.9 81 18 134/81 (98) 10/15/18 19:36 75 14 Intake and Output 10/15/18 10/16/18 18:59 06:59 Intake Total 300 ml 360 ml Balance 300 ml 360 ml Intake Oral 300 ml 360 ml # Voids 3 2 Laboratory Tests Test 10/16/18 05:05 White Blood Count 4.5 K/UL (4.8-10.8) L Red Blood Count 3.73 M/UL (4.20-5.40) L Hemoglobin 10.8 G/DL (12.0-16.0) L Hematocrit 34.1 % (37.0-47.0) L Mean Corpuscular Volume 92 FL (80-99) Mean Corpuscular Hemoglobin 29.1 PG (27.0-31.0) Mean Corpuscular Hemoglobin Concent 31.8 G/DL (32.0-36.0) L Red Cell Distribution Width 14.4 % (11.6-14.8) Platelet Count 169 K/UL (150-450) Mean Platelet Volume 7.1 FL (6.5-10.1) Neutrophils (%) (Auto) 44.9 % (45.0-75.0) L Lymphocytes (%) (Auto) 40.4 % (20.0-45.0) Monocytes (%) (Auto) 9.4 % (1.0-10.0) Eosinophils (%) (Auto) 2.3 % (0.0-3.0) Basophils (%) (Auto) 3.0 % (0.0-2.0) H Sodium Level 142 MMOL/L (136-145) Potassium Level 3.8 MMOL/L (3.5-5.1) Chloride Level 110 MMOL/L (98-107) H Carbon Dioxide Level 27 MMOL/L (21-32) Anion Gap 5 mmol/L (5-15) Blood Urea Nitrogen 8 mg/dL (7-18) Creatinine 0.7 MG/DL (0.55-1.30) Estimat Glomerular Filtration Rate mL/min (>60) Glucose Level 85 MG/DL (74-106) Calcium Level 9.2 MG/DL (8.5-10.1) Microbiology Date/Time Source Procedure Growth Status 10/13/18 18:03 Nasal Nares MRSA Culture - Final NO METHICILLIN RESISTANT STAPH AUREUS... Complete 10/13/18 18:03 Rectum VRE Culture - Final NO VANCOMYCIN RESISTANT ENTEROCOCCUS ... Complete 10/13/18 18:03 Rectum - Final NO CARBAPENEM-RESISTANT ENTEROBACTERI... Complete Objective HEAD AND NECK: Shows no JVD or carotid bruits. LUNGS: Clear. CARDIOVASCULAR: Shows regular S1 and S2 with no gallop or murmur. ABDOMEN: Soft. EXTREMITIES: No pitting edema. Her right leg is in immobilizer. Jose An MD Oct 16, 2018 12:18
--- NOTE | 2018-10-16 12:53 | NUR ---
NURSE NOTES: Notified Dr. An regarding elevated blood pressure even with blood pressure medication in the morning. Will continue to monitor the patient and carry out the order as soon as receives it. Will continue plan of care.
--- NOTE | 2018-10-16 12:55 | NUR ---
NURSE NOTES: Dr. Steel ordered to discontinue Cefazolin since she did not get the surgery. Carried out the order. Will continue to monitor the patient.
--- NOTE | 2018-10-16 12:58 | NUR ---
NURSE NOTES: Dr. Fuentes ordered physical therapy with evaluation. Will carry out the order.
--- NOTE | 2018-10-16 14:14 | NUR ---
NURSE NOTES: The patient refused keep IV. Made aware to Dr. Fuentes. Will continue plan of care.
--- NOTE | 2018-10-16 14:18 | NUR ---
NURSE NOTES: Notified Dr. Champion regarding the patient's elevated blood pressure. Will carry out the order as soon as receives it. Will continue plan of care.
--- NOTE | 2018-10-16 14:25 | Consultation ---
Consult Note Consult Note I was asked to evaluate the patient at the request of Dr nelson for BP management Patient poor historian h/o HTN CVA SZ CVA High Cholestrol ER: 73-year-old female presents with right ankle pain that started 09/07/2018, patient had a fall, she was seen in outside hospital, she was splinted with a stirrup, she endorses right ankle pain worsened with movement, sharp in nature, severity is moderate, alleviated with rest, aggravated by movement. Patient brought to the hospital for operative management, patient currently has no complaints other than the right ankle pain. Allergies: Coded Allergies: ASPIRIN (Verified Allergy, Unknown, 10/13/18) Assessment/Plan HTN Anemia Obesity High Cholestrol h/o CVA ? CAD Gastric support Norvasc to be added to Lopressor anemia mohan per consultants Tay Calderón MD Oct 16, 2018 14:25
--- NOTE | 2018-10-16 15:00 | NUR ---
NURSE NOTES: Urine collection done for urinalysis. Sent the sample down to lab. Will continue plan of care.
[2018-10-16 15:17] LABS: APPEARANCE,URINE CLEAR; BILIRUBIN, URINE NEGATIVE (NEGATIVE); COLOR,URINE PALE YELLOW; GLUCOSE, URINE (UA) NEGATIVE (NEGATIVE); KETONES,URINE NEGATIVE (NEGATIVE); LEUKOCYTE ESTERASE ,URINE NEGATIVE (NEGATIVE); NITRITE,URINE NEGATIVE (NEGATIVE); PH,URINE 6.5 (4.5-8.0); PROTEIN,URINE NEGATIVE (NEGATIVE); UROBILINOGEN,URINE NORMAL MG/DL (0.0-1.0)
--- NOTE | 2018-10-16 15:27 | General Progress Note ---
Progress Note Progress Note Patient is being followed by Ortho. Will defer to ortho for care. Please re-consult for any Podiatric issues. Thank you Arcenio Christensen DPM Oct 16, 2018 15:27
--- NOTE | 2018-10-16 15:31 | Hematology/Onc Progress Note ---
Assessment/Plan Assessment/Plan Assessment and Recs: # Anemia of chronic disease (or of iron deficiency) due to underlying chronic medical issues, multifactorial --> Anemia workup has been ordered, rule out gi bleed --> No evidence of hemolysis is noted, peripheral smear has been reviewed. --> Hgb goal >7. Transfuse prn. --> Epogen or iron at this time is not particularly indicated (if hgb downtrends consider use of epogen/procrit) pre procedure --> Medications have been reviewed --> low threshold for gi evaluation in case has occult + # Leukopenia -- multiple etiologies could be related to underlying liver disease , medication-induced, infection versus viral syndrome v infection --> peripheral smear has been ordered and does not show significant abnormalities --> Medications have been reviewed (can be due to lipitor) --> Continue to monitor for improvement, trend cbc --> Hep panel and HIV have been ordered --> US abd ordered to r/o cirrhosis and hepatosplenomegaly --> reverse isolation if ANC is <2000 # Bimalleolar fracture of right ankle - Displaced bimalleolar fracture of right lower leg, initial encounter for closed fracture --> per ortho management as with Dr. Steel --> cam boot x 3 weeks # Hypoalbunenkia --> recommend improved po intake --> may need mirtazapine after sx # DVT ppx hep sq after sx The timing of this note does not necessarily reflect the time of the patient was seen. GREATLY APPRECIATE CONSULTATION. Subjective Constitutional: Denies: no symptoms, chills, fever, malaise, weakness, other HEENT: Denies: no symptoms, eye pain, blurred vision, tearing, double vision, ear pain, ear discharge, nose pain, nose congestion, throat pain, throat swelling, mouth pain, mouth swelling, other Cardiovascular: Denies: no symptoms, chest pain, edema, irregular heart rate, lightheadedness, palpitations, syncope, other Respiratory: Denies: no symptoms, cough, shortness of breath, SOB with excertion, SOB at rest, sputum, wheezing, other Gastrointestinal/Abdominal: Denies: no symptoms, abdomen distended, abdominal pain, black stools, tarry stools, blood in stool, constipated, diarrhea, difficulty swallowing, nausea, poor appetite, poor fluid intake, rectal bleeding , vomiting, other Endocrine: Denies: no symptoms, excessive sweating, flushing, intolerance to cold, intolerance to heat, increased hunger, increased thirst, increased urine, unexplained weight gain, unexplained weight loss, other Allergies: Coded Allergies: MEPERIDINE (Verified Allergy, Severe, Anaphylaxis, 10/14/18) Beef (Verified Allergy, Intermediate, 10/14/18) ELEVATES BLOOD PRESSURE RICE (Verified Allergy, Intermediate, 10/14/18) DOES NOT DIGEST WELL. ASPIRIN (Verified Allergy, Unknown, 10/13/18) All Systems: reviewed and negative except above Subjective 10/16; no bleeding or chills noted, labs have been reviewed, no major changes, s/ p ankle manipulation with Dr. Steel Objective Objective Current Medications Medications (Trade) Dose Ordered Sig/Jos Route PRN Reason Start Time Stop Time Status Last Admin Dose Admin Acetaminophen (Tylenol) 650 mg Q6H PRN ORAL Mild Pain/Temp > 100.5 10/13/18 21:00 11/12/18 20:59 10/16/18 06:02 Acetaminophen/ Hydrocodone Bitart ([place] 5/325) 1 tab Q4H PRN ORAL For Pain 10/15/18 16:45 10/22/18 16:44 10/15/18 18:44 Amlodipine Besylate (Norvasc) 5 mg BID ORAL 10/16/18 18:00 11/15/18 17:59 Amlodipine Besylate (Norvasc) 5 mg ONCE ORAL 10/16/18 14:31 10/16/18 15:30 10/16/18 14:48 Atorvastatin Calcium (Lipitor) 40 mg BEDTIME ORAL 10/13/18 22:00 11/12/18 21:59 10/15/18 20:50 Bisacodyl (Dulcolax) 10 mg DAILYPRN PRN RECTAL Constipation 10/14/18 04:00 11/13/18 03:59 Cetirizine HCl (ZyrTEC) 10 mg DAILYPRN PRN ORAL Seasonal allergies 10/13/18 21:00 11/12/18 20:59 Clopidogrel Bisulfate (Plavix) 75 mg DAILY ORAL 10/14/18 09:00 11/13/18 08:59 10/16/18 09:04 Docusate Sodium (Colace) 100 mg THREE TIMES A DAY ORAL 10/16/18 09:00 11/15/18 08:59 10/16/18 13:20 Fluticasone Propionate (Flonase) 2 spray DAILY NASAL 10/14/18 09:00 11/13/18 08:59 10/16/18 09:03 Gabapentin (Neurontin) 200 mg BEDTIME ORAL 10/13/18 22:00 11/12/18 21:59 10/15/18 20:50 Heparin Sodium (Porcine) (Heparin 5000 units/ml) 5,000 units 0000,0800,1600 SUBQ 10/16/18 09:00 11/15/18 08:59 10/16/18 09:07 Hydromorphone HCl (Dilaudid) 0.5 mg Q4H PRN SUBQ Mild Pain (Pain Scale 1-3) 10/15/18 16:45 10/22/18 16:44 Hydromorphone HCl (Dilaudid) 1 mg Q3H PRN SUBQ Moderate Pain (Pain Scale 4-6) 10/15/18 16:45 10/22/18 16:44 10/15/18 22:10 Magnesium Hydroxide (Mom) 30 ml DAILYPRN PRN ORAL Constipation 10/13/18 21:00 11/12/18 20:59 Metoprolol Succinate (Toprol XL) 25 mg DAILY ORAL 10/16/18 09:00 11/15/18 08:59 10/16/18 09:04 Ondansetron HCl (Zofran) 4 mg Q6H PRN IVP Nausea & Vomiting 10/15/18 16:45 11/14/18 16:44 Oxybutynin Chloride (Ditropan) 5 mg BID ORAL 10/14/18 09:00 11/13/18 08:59 10/16/18 09:03 Pantoprazole (Protonix) 40 mg EVERY 12 HOURS ORAL 10/16/18 21:00 11/15/18 20:59 Senna/Docusate Sodium (Belen-Colace) 1 tab TID ORAL 10/16/18 18:00 11/15/18 08:59 Sodium Phosphate (Fleet's Sodium Phosl Enema) 133 ml DAILYPRN PRN RECTAL Constipation 10/13/18 21:00 11/12/18 20:59 Temazepam (Restoril) 7.5 mg HSPRN PRN ORAL Insomnia 10/15/18 16:45 10/22/18 16:44 Last 24 Hour Vital Signs Date Time Temp Pulse Resp B/P (MAP) Pulse Ox O2 Delivery O2 Flow Rate FiO2 10/16/18 14:48 68 159/92 10/16/18 12:00 98.0 68 16 159/92 (114) 99 10/16/18 09:04 72 161/95 10/16/18 09:00 Room Air 10/16/18 08:00 98.1 72 18 161/95 (117) 99 10/16/18 04:00 98.4 79 17 140/83 (102) 10/16/18 00:00 98.6 76 17 129/79 (96) 10/15/18 21:51 Room Air 10/15/18 20:00 98.9 81 18 134/81 (98) 10/15/18 19:36 75 14 10/15/18 12:00 98.2 76 20 136/87 (103) 98 10/15/18 09:00 Room Air 10/15/18 04:00 98.1 77 15 125/83 (97) 97 10/14/18 21:00 Room Air 10/14/18 20:00 98.2 71 16 133/82 (99) 98 10/14/18 16:00 97.6 76 21 127/83 (98) 98 Intake and Output 10/15/18 10/16/18 18:59 06:59 Intake Total 300 ml 360 ml Balance 300 ml 360 ml Intake Oral 300 ml 360 ml # Voids 3 2 Labs Test 10/13/18 15:50 10/14/18 10:10 10/15/18 05:26 10/16/18 05:05 White Blood Count 4.6 K/UL (4.8-10.8) 4.1 K/UL (4.8-10.8) 4.5 K/UL (4.8-10.8) Red Blood Count 4.13 M/UL (4.20-5.40) 3.85 M/UL (4.20-5.40) 3.73 M/UL (4.20-5.40) Hemoglobin 11.9 G/DL (12.0-16.0) 11.0 G/DL (12.0-16.0) 10.8 G/DL (12.0-16.0) Hematocrit 37.8 % (37.0-47.0) 34.7 % (37.0-47.0) 34.1 % (37.0-47.0) Mean Corpuscular Volume 92 FL (80-99) 90 FL (80-99) 92 FL (80-99) Mean Corpuscular Hemoglobin 28.9 PG (27.0-31.0) 28.6 PG (27.0-31.0) 29.1 PG (27.0-31.0) Mean Corpuscular Hemoglobin Concent 31.6 G/DL (32.0-36.0) 31.7 G/DL (32.0-36.0) 31.8 G/DL (32.0-36.0) Red Cell Distribution Width 13.5 % (11.6-14.8) 13.4 % (11.6-14.8) 14.4 % (11.6-14.8) Platelet Count 180 K/UL (150-450) 171 K/UL (150-450) 169 K/UL (150-450) Mean Platelet Volume 6.6 FL (6.5-10.1) 7.1 FL (6.5-10.1) 7.1 FL (6.5-10.1) Neutrophils (%) (Auto) 41.4 % (45.0-75.0) 47.1 % (45.0-75.0) 44.9 % (45.0-75.0) Lymphocytes (%) (Auto) 46.3 % (20.0-45.0) 39.2 % (20.0-45.0) 40.4 % (20.0-45.0) Monocytes (%) (Auto) 8.6 % (1.0-10.0) 10.5 % (1.0-10.0) 9.4 % (1.0-10.0) Eosinophils (%) (Auto) 2.2 % (0.0-3.0) 2.1 % (0.0-3.0) 2.3 % (0.0-3.0) Basophils (%) (Auto) 1.4 % (0.0-2.0) 1.1 % (0.0-2.0) 3.0 % (0.0-2.0) Prothrombin Time 10.3 SEC (9.30-11.50) Prothromb Time International Ratio 1.0 (0.9-1.1) Activated Partial Thromboplast Time 28 SEC (23-33) Sodium Level 141 MMOL/L (136-145) 141 MMOL/L (136-145) 142 MMOL/L (136-145) Potassium Level 4.1 MMOL/L (3.5-5.1) 3.9 MMOL/L (3.5-5.1) 3.8 MMOL/L (3.5-5.1) Chloride Level 107 MMOL/L (98-107) 106 MMOL/L (98-107) 110 MMOL/L (98-107) Carbon Dioxide Level 28 MMOL/L (21-32) 26 MMOL/L (21-32) 27 MMOL/L (21-32) Anion Gap 6 mmol/L (5-15) 10 mmol/L (5-15) 5 mmol/L (5-15) Blood Urea Nitrogen 7 mg/dL (7-18) 7 mg/dL (7-18) 8 mg/dL (7-18) Creatinine 0.8 MG/DL (0.55-1.30) 0.8 MG/DL (0.55-1.30) 0.7 MG/DL (0.55-1.30) Estimat Glomerular Filtration Rate mL/min (>60) mL/min (>60) mL/min (>60) Glucose Level 92 MG/DL (74-106) 78 MG/DL (74-106) 85 MG/DL (74-106) Calcium Level 9.7 MG/DL (8.5-10.1) 9.7 MG/DL (8.5-10.1) 9.2 MG/DL (8.5-10.1) Total Bilirubin 0.2 MG/DL (0.2-1.0) Aspartate Amino Transf (AST/SGOT) 28 U/L (15-37) Alanine Aminotransferase (ALT/SGPT) 37 U/L (12-78) Alkaline Phosphatase 105 U/L (46-116) Total Protein 6.9 G/DL (6.4-8.2) Albumin 3.2 G/DL (3.4-5.0) Globulin 3.7 g/dL Albumin/Globulin Ratio 0.9 (1.0-2.7) Carcinoembryonic Antigen 1.3 ng/mL (0.0-4.7) Test 10/16/18 14:42 Urine Color Pale yellow Urine Appearance Clear Urine pH 6.5 (4.5-8.0) Urine Specific [place] 1.005 (1.005-1.035) Urine Protein Negative (NEGATIVE) Urine Glucose (UA) Negative (NEGATIVE) Urine Ketones Negative (NEGATIVE) Urine Blood Negative (NEGATIVE) Urine Nitrite Negative (NEGATIVE) Urine Bilirubin Negative (NEGATIVE) Urine Urobilinogen Normal MG/DL (0.0-1.0) Urine Leukocyte Esterase Negative (NEGATIVE) Height (Feet): 5 Height (Inches): 3.00 Weight (Pounds): 211 Objective Vitals: reviewed General Appearance: NAD HEENT: normocephalic, atraumatic Neck: non-tender, normal alignment Respiratory/Chest: normal breath sounds bilaterally Cardiovascular/Chest: normal peripheral pulses, normal rate Abdomen: normal bowel sounds, soft, nontender Extremities: normal range of motion, Lower extreme knee: 2+ PT DP,right nakle with dressing, will need cam boot Neurologic: alert, oriented x3 Tone Lenz MD Oct 16, 2018 15:31
[2018-10-16 16:00] VITALS: BP 162/93
[2018-10-16] MEDS: Docusate Sod/Senna tab ORAL SCH (17:30)
--- NOTE | 2018-10-16 17:30 | NUR ---
EXHIBITION ORGANISER NOTES CHART REVIEWED AND ORDERS NOTED. CM TO BE AVAILABLE FOR ANY ARISING ISSUES/CONCERNS.
--- NOTE | 2018-10-16 19:26 | NUR ---
HAND-OFF: Report given to JACK Wilson. The patient is resting on the bed without acute distress or shortness of breath. The patient's bed in the lowest position, call light in reach, and fall, aspiration, and seizure precaution reinforced. Endorsed plan of care.
--- NOTE | 2018-10-16 19:38 | NUR ---
NURSE NOTES: Dr. An ordered PRN blood pressure medication now for elevated blood pressure. Will carry out the order. Informed to JACK Wilson, the receiving nurse.
[2018-10-16] MEDS ORDERED: cloNIDine 0.2mg Tab ORAL PRN (19:45)
--- NOTE | 2018-10-16 19:54 | NUR ---
NURSE NOTES: patient received. patient in no acute distress at this time. patient complains of no pain at this time. patient alert and oriented x4. patient has no IV. refused IV dr aware. Patient skin intact. patient not to weight bear on right side, sign by bed. patient only allowed to get BP done on Left calf, sign above bed. bed in lowest position and locked. call light within reach. bed alarm on. will continue to monitor.
[2018-10-16 20:00] VITALS: BP 171/91
[2018-10-16] MEDS: Atorvastatin 20mg tab ORAL SCH (20:18)
--- NOTE | 2018-10-16 22:49 | General Progress Note ---
Assessment/Plan Problem List: (1) Bimalleolar fracture of right ankle ICD Codes: S82.841A - Displaced bimalleolar fracture of right lower leg, initial encounter for closed fracture SNOMED: [id number] Qualifiers: Qualified Codes: S82.841A - Displaced bimalleolar fracture of right lower leg, initial encounter for closed fracture Status: progressing Assessment/Plan: dr pedroza took to or and told me that joint was stable and no surgey needed to be done dc to snf in am w cam boots per podiatry not surgery is needed consulted podiatry for dista tib fib fracture Subjective ROS Limited/Unobtainable: Yes Allergies: Coded Allergies: MEPERIDINE (Verified Allergy, Severe, Anaphylaxis, 10/14/18) Beef (Verified Allergy, Intermediate, 10/14/18) ELEVATES BLOOD PRESSURE RICE (Verified Allergy, Intermediate, 10/14/18) DOES NOT DIGEST WELL. ASPIRIN (Verified Allergy, Unknown, 10/13/18) Objective Last 24 Hour Vital Signs Date Time Temp Pulse Resp B/P (MAP) Pulse Ox O2 Delivery O2 Flow Rate FiO2 10/16/18 21:02 171/91 10/16/18 21:00 Room Air 10/16/18 20:00 98.3 18 171/91 (117) 99 10/16/18 17:30 69 162/93 10/16/18 16:00 Room Air 10/16/18 16:00 98.2 69 18 162/93 (116) 99 10/16/18 14:48 68 159/92 10/16/18 12:00 98.0 68 16 159/92 (114) 99 10/16/18 09:04 72 161/95 10/16/18 09:00 Room Air 10/16/18 08:00 98.1 72 18 161/95 (117) 99 10/16/18 04:00 98.4 79 17 140/83 (102) 10/16/18 00:00 98.6 76 17 129/79 (96) Intake and Output 10/15/18 10/16/18 19:00 07:00 Intake Total 300 ml 360 ml Balance 300 ml 360 ml Intake Oral 300 ml 360 ml # Voids 3 2 Laboratory Tests 10/16/18 05:05: White Blood Count 4.5L, Red Blood Count 3.73L, Hemoglobin 10.8L, Hematocrit 34.1L, Mean Corpuscular Volume 92, Mean Corpuscular Hemoglobin 29.1, Mean Corpuscular Hemoglobin Concent 31.8L, Red Cell Distribution Width 14.4, Platelet Count 169, Mean Platelet Volume 7.1, Neutrophils (%) (Auto) 44.9L, Lymphocytes (%) (Auto) 40.4, Monocytes (%) (Auto) 9.4, Eosinophils (%) (Auto) 2.3, Basophils (%) (Auto) 3.0H, Sodium Level 142, Potassium Level 3.8, Chloride Level 110H, Carbon Dioxide Level 27, Anion Gap 5, Blood Urea Nitrogen 8, Creatinine 0.7, Estimat Glomerular Filtration Rate , Glucose Level 85, Calcium Level 9.2 10/16/18 06:26: Hepatitis A IgM Antibody [Pending], Hepatitis B Surface Antigen [Pending], Hepatitis B Core IgM Antibody [Pending], Hepatitis C Antibody [Pending], HIV (1& 2) Antibody Rapid Negative 10/16/18 14:42: Urine Color Pale yellow, Urine Appearance Clear, Urine pH 6.5, Urine Specific [place] 1.005, Urine Protein Negative, Urine Glucose (UA) Negative, Urine Ketones Negative, Urine Blood Negative, Urine Nitrite Negative, Urine Bilirubin Negative, Urine Urobilinogen Normal, Urine Leukocyte Esterase Negative, Urine RBC 0-2, Urine WBC 0-2, Urine Squamous Epithelial Cells Few, Urine Bacteria Few Height (Feet): 5 Height (Inches): 3.00 Weight (Pounds): 211 Cardiovascular: normal rate Respiratory/Chest: lungs clear Abdomen: soft Akira Fuentes MD Oct 16, 2018 22:49
[2018-10-17] VITALS: BP 124/70
[2018-10-17] MEDS: Heparin 5000 units/ml inj SUBQ SCH ×2 (00:36→09:46)
--- NOTE | 2018-10-17 01:14 | NUR ---
NURSE NOTES: Received report from JACK Wilson. Patient sleeping. Breathing unlabored without distress,discomfort, or sob. No complains of pain at this time. No IV, MD aware. BP done on left calf. BP only allowed on left calf. All precautions marked above the bed. Bedside commode next to the bed. Bed placed at the lowest alarm, brake, with side rails up x 2 for safety. Call light placed within reach. Will continue to monitor.
--- NOTE | 2018-10-17 01:17 | NUR ---
HAND-OFF: Report given to JACK NELSON.
[2018-10-17 04:00] VITALS: BP 128/71
[2018-10-17 06:49] LABS: BASOPHILS % (AUTO) 0.9 % (0.0-2.0); EOSINOPHILS % (AUTO) 2.2 % (0.0-3.0); HEMATOCRIT 32.7 % (37.0-47.0); HEMOGLOBIN 10.5 G/DL (12.0-16.0); LYMPHOCYTES % (AUTO) 38.8 % (20.0-45.0); MEAN CORPUSCULAR VOLUME 91 FL (80-99); NEUTROPHILS % (AUTO) 48.2 % (45.0-75.0); PLATELET COUNT 167 K/UL (150-450); RED BLOOD COUNT 3.58 M/UL (4.20-5.40); RED CELL DISTRIBUTION WIDTH 13.8 % (11.6-14.8); WHITE BLOOD COUNT 4.6 K/UL (4.8-10.8)
--- NOTE | 2018-10-17 07:28 | NUR ---
NURSE NOTES: PT AXOX4, CALM, RESTING IN BED. PT STATES PAIN OF RIGHT ANKLE BUT REFUSING MEDS AT THIS TIME. RN OFFERED ICE PACK, PT REFUSED. PT WAS EDUCATED ON NPO STATUS DUE TO PENDING US ABDOMEN TODAY. PT VERBALIZED UNDERSTANDING. IN NO APPARENT DISTRESS AT THIS TIME. CALL LIGHT WITHIN REACH. WILL CONTINUE TO MONITOR.
[2018-10-17 07:33] LABS: GAMMA GLUTAMYL TRANSPEPTIDASE 34 U/L (5-85); PHOSPHORUS 3.2 MG/DL (2.5-4.9)
--- NOTE | 2018-10-17 07:34 | NUR ---
HAND-OFF: Report given to Crystal Fiore RN. Patient in stable condition.
[2018-10-17 07:42] LABS: ALANINE AMINOTRANSFERASE 31 U/L (12-78); ALBUMIN 2.8 G/DL (3.4-5.0); ALBUMIN/GLOBULIN RATIO 0.8 (1.0-2.7); ALKALINE PHOSPHATASE 82 U/L (46-116); ANION GAP 10 mmol/L (5-15); ASPARTATE AMINO TRANSFERASE 18 U/L (15-37); BILIRUBIN,TOTAL 0.3 MG/DL (0.2-1.0); BLOOD UREA NITROGEN 10 mg/dL (7-18); CALCIUM 9.1 MG/DL (8.5-10.1); CARBON DIOXIDE 23 MMOL/L (21-32); CHLORIDE 111 MMOL/L (98-107); CHOLESTEROL 138 MG/DL (< 200); CREATININE 0.8 MG/DL (0.55-1.30); FERRITIN 173 NG/ML (8-388); HDL CHOLESTEROL 48 MG/DL (40-60); POTASSIUM 3.6 MMOL/L (3.5-5.1); SODIUM 144 MMOL/L (136-145); TRIGLYCERIDES 64 MG/DL (30-150)
[2018-10-17 07:54] LABS: % IRON SATURATION 37 % (15-50); IRON 63 ug/dL (50-175); TOTAL IRON BINDING CAPACITY 169 ug/dL (250-450)
--- NOTE | 2018-10-17 08:26 | NUR ---
NURSE NOTES: Spoke to regarding discharge and new order received. Order read back and carried out.
[2018-10-17 09:30] VITALS: BP 165/93
--- NOTE | 2018-10-17 09:30 | NUR ---
*-* DISCHARGE PLANNING *-* PATIENT HAS BEEN REFERRED BACK TO: [facility] P: [phone] F: [phone]
[2018-10-17] MEDS: Oxybutynin 5mg tab ORAL SCH (09:35)
[2018-10-17] MEDS: Docusate 100mg cap ORAL SCH (09:35)
[2018-10-17] MEDS: Docusate Sod/Senna tab ORAL SCH (09:36)
[2018-10-17] MEDS: Flonase Nasal Inhaler 16gm NASAL SCH (09:36)
[2018-10-17] MEDS: Metoprolol Succinate XL 25mg tab ORAL SCH (09:37)
[2018-10-17] MEDS ORDERED: MAGNESIUM OXID400 M1 ORAL (09:57)
--- NOTE | 2018-10-17 10:05 | Nephrology Progress Note ---
Assessment/Plan Problem List: (1) Bimalleolar fracture of right ankle (2) HTN (hypertension) (3) Anemia (4) Obese (5) CAD (coronary artery disease) Assessment HTN Anemia Obesity High Cholestrol h/o CVA ? CAD Plan Gastric support Norvasc to be added to Lopressor anemia mohan per consultants Mag PO PRN Hydralazine for high BP Subjective ROS Limited/Unobtainable: No Objective Objective Last 24 Hour Vital Signs Date Time Temp Pulse Resp B/P (MAP) Pulse Ox O2 Delivery O2 Flow Rate FiO2 10/17/18 09:37 68 165/93 10/17/18 09:37 68 165/93 10/17/18 09:30 68 18 165/93 (117) 97 10/17/18 09:00 Room Air 10/17/18 04:00 98.3 74 18 128/71 (90) 98 10/17/18 00:00 80 17 124/70 (88) 10/16/18 21:02 171/91 10/16/18 21:00 Room Air 10/16/18 20:00 98.3 18 171/91 (117) 99 10/16/18 17:30 69 162/93 10/16/18 16:00 Room Air 10/16/18 16:00 98.2 69 18 162/93 (116) 99 10/16/18 14:48 68 159/92 10/16/18 12:00 98.0 68 16 159/92 (114) 99 Intake and Output 10/16/18 10/17/18 19:00 07:00 Intake Total 500 ml 240 ml Balance 500 ml 240 ml Intake Oral 500 ml 240 ml # Voids 8 1 # Bowel Movements 2 1 Current Medications Medications (Trade) Dose Ordered Sig/Jos Route PRN Reason Start Time Stop Time Status Last Admin Dose Admin Acetaminophen (Tylenol) 650 mg Q6H PRN ORAL Mild Pain/Temp > 100.5 10/13/18 21:00 11/12/18 20:59 10/16/18 06:02 Acetaminophen/ Hydrocodone Bitart (P[place]iac 5/325) 1 tab Q4H PRN ORAL For Pain 10/15/18 16:45 10/22/18 16:44 10/15/18 18:44 Amlodipine Besylate (Norvasc) 5 mg BID ORAL 10/16/18 18:00 11/15/18 17:59 10/17/18 09:37 Atorvastatin Calcium (Lipitor) 40 mg BEDTIME ORAL 10/13/18 22:00 11/12/18 21:59 10/16/18 20:18 Bisacodyl (Dulcolax) 10 mg DAILYPRN PRN RECTAL Constipation 10/14/18 04:00 11/13/18 03:59 Cetirizine HCl (ZyrTEC) 10 mg DAILYPRN PRN ORAL Seasonal allergies 10/13/18 21:00 11/12/18 20:59 Clonidine HCl (Catapres tab) 0.2 mg Q2H PRN ORAL For High Blood Pressure 10/16/18 19:45 11/15/18 19:44 10/16/18 21:02 Clopidogrel Bisulfate (Plavix) 75 mg DAILY ORAL 10/14/18 09:00 11/13/18 08:59 10/17/18 09:35 Docusate Sodium (Colace) 100 mg THREE TIMES A DAY ORAL 10/16/18 09:00 11/15/18 08:59 10/17/18 09:35 Fluticasone Propionate (Flonase) 2 spray DAILY NASAL 10/14/18 09:00 11/13/18 08:59 10/17/18 09:36 Gabapentin (Neurontin) 200 mg BEDTIME ORAL 10/13/18 22:00 11/12/18 21:59 10/16/18 20:18 Heparin Sodium (Porcine) (Heparin 5000 units/ml) 5,000 units 0000,0800,1600 SUBQ 10/16/18 09:00 11/15/18 08:59 10/17/18 09:46 Hydromorphone HCl (Dilaudid) 0.5 mg Q4H PRN SUBQ Mild Pain (Pain Scale 1-3) 10/15/18 16:45 10/22/18 16:44 Hydromorphone HCl (Dilaudid) 1 mg Q3H PRN SUBQ Moderate Pain (Pain Scale 4-6) 10/15/18 16:45 10/22/18 16:44 10/15/18 22:10 Magnesium Hydroxide (Mom) 30 ml DAILYPRN PRN ORAL Constipation 10/13/18 21:00 11/12/18 20:59 Magnesium Oxide (Mag-Ox 400mg) 400 mg THREE TIMES A DAY ORAL 10/17/18 13:00 11/16/18 12:59 Metoprolol Succinate (Toprol XL) 25 mg DAILY ORAL 10/16/18 09:00 11/15/18 08:59 10/17/18 09:37 Ondansetron HCl (Zofran) 4 mg Q6H PRN IVP Nausea & Vomiting 10/15/18 16:45 11/14/18 16:44 Oxybutynin Chloride (Ditropan) 5 mg BID ORAL 10/14/18 09:00 11/13/18 08:59 10/17/18 09:35 Pantoprazole (Protonix) 40 mg EVERY 12 HOURS ORAL 10/16/18 21:00 11/15/18 20:59 10/17/18 09:35 Senna/Docusate Sodium (Belen-Colace) 1 tab TID ORAL 10/16/18 18:00 11/15/18 08:59 10/17/18 09:36 Sodium Phosphate (Fleet's Sodium Phosl Enema) 133 ml DAILYPRN PRN RECTAL Constipation 10/13/18 21:00 11/12/18 20:59 Temazepam (Restoril) 7.5 mg HSPRN PRN ORAL Insomnia 10/15/18 16:45 10/22/18 16:44 Laboratory Tests 10/16/18 14:42: Urine Color Pale yellow, Urine Appearance Clear, Urine pH 6.5, Urine Specific [place] 1.005, Urine Protein Negative, Urine Glucose (UA) Negative, Urine Ketones Negative, Urine Blood Negative, Urine Nitrite Negative, Urine Bilirubin Negative, Urine Urobilinogen Normal, Urine Leukocyte Esterase Negative, Urine RBC 0-2, Urine WBC 0-2, Urine Squamous Epithelial Cells Few, Urine Bacteria Few 10/17/18 04:50: White Blood Count 4.6L, Red Blood Count 3.58L, Hemoglobin 10.5L, Hematocrit 32.7L, Mean Corpuscular Volume 91, Mean Corpuscular Hemoglobin 29.4, Mean Corpuscular Hemoglobin Concent 32.2, Red Cell Distribution Width 13.8, Platelet Count 167, Mean Platelet Volume 6.9, Neutrophils (%) (Auto) 48.2, Lymphocytes (% ) (Auto) 38.8, Monocytes (%) (Auto) 10.0, Eosinophils (%) (Auto) 2.2, Basophils (%) (Auto) 0.9, Sodium Level 144, Potassium Level 3.6, Chloride Level 111H, Carbon Dioxide Level 23, Anion Gap 10, Blood Urea Nitrogen 10, Creatinine 0.8, Estimat Glomerular Filtration Rate , Glucose Level 94, Hemoglobin A1c 5.2, Uric Acid 6.2, Calcium Level 9.1, Phosphorus Level 3.2, Magnesium Level 1.6L, Iron Level 63, Total Iron Binding Capacity 169L, Percent Iron Saturation 37, Unsaturated Iron Binding 106L, Ferritin 173, Total Bilirubin 0.3, Gamma Glutamyl Transpeptidase 34, Aspartate Amino Transf (AST/SGOT) 18, Alanine Aminotransferase (ALT/SGPT) 31, Alkaline Phosphatase 82, C-Reactive Protein, Quantitative < 0.4, Pro-B-Type Natriuretic Peptide 362H, Total Protein 6.1L, Albumin 2.8L, Globulin 3.3, Albumin/Globulin Ratio 0.8L, Triglycerides Level 64 , Cholesterol Level 138, LDL Cholesterol 73, HDL Cholesterol 48, Cholesterol/ HDL Ratio 2.9L, Vitamin B12 Level 364, Folate 9.3, Thyroid Stimulating Hormone ( TSH) 1.968 Height (Feet): 5 Height (Inches): 3.00 Weight (Pounds): 103 General Appearance: no apparent distress Respiratory/Chest: decreased breath sounds Abdomen: soft, other - obese Objective no change Tay Calderón MD Oct 17, 2018 10:05
[2018-10-17] MEDS ORDERED: HydrALAZINE 25mg tab ORAL SCH (10:15)
--- NOTE | 2018-10-17 10:54 | NUR ---
NURSE NOTES: RN GAVE REPORT TO TAN REYNA RN. MARIBELL MADE AWARE PT TO WEAR CAM BOOT. PT STATES SHE HAS CAM BOOT FROM PREVIOUS INJURY. PT MADE AWARE SHE IS TO FOLLOW UP WITH DR DUNN IN 2 WEEKS. PT VERBALIZED UNDERSTANDING.
[2018-10-17 12:00] VITALS: BP 137/79
--- NOTE | 2018-10-17 12:18 | NUR ---
NURSE NOTES: NO IV ACCESS. PT HAS ALL BELONGINGS ACCOUNTED, CHECKED AT BEDSIDE. PT EDUCATED ON DISCHARGE MEDICATIONS. PT WAS DISCHARGED IN STABLE CONDITION WITH AMBULANCE PERSONNEL.
[2018-10-17] MEDS ORDERED: Magnesium Oxide 400mg tab ORAL SCH (13:00)
--- NOTE | 2018-10-17 13:30 | Discharge Summary ---
Discharge Summary Discharge Summary _ DATE OF ADMISSION: 10/13/2018 DATE OF DISCHARGE: 10/17/2018 DISCHARGED BY: Dr. Fuentes REASON FOR ADMISSION: 72 years old female with past medical history of hypertension, hyperlipidemia, questionable myocardial infarction, TIA, seizure disorder, diabetes mellitus type 2, anemia, alcohol use, resident of assisted facility, presented with right ankle pain after fall . Patient was seen in outside facility and was diagnosed with bimalleolar right ankle fracture. Subsequently she was placed in a splint and was brought to emergency room for further evaluation and management. Patient reported right ankle pain , worse with movement , sharp in nature, moderate in severity , alleviated with rest and aggravated by movement. Patient was brought to the hospital for operative management. On evaluation vital signs were stable. Laboratory work-up revealed no leukocytosis , hemoglobin 11.9 , hematocrit 37.8. Stable electrolytes and renal parameters. Glucose 92. Stable LFT. Albumin 3.2. EKG revealed sinus rhythm, no acute ischemic changes . Chest x-ray revealed no acute cardiopulmonary pathology. Patient was admitted for further management. CONSULTANTS: visual merchandising manager Dr. Moses neurologist Dr. Rajan vice president process. Dr. Calderón intake specialist/oncologist Dr. Lenz orthopedic surgery [facility] COURSE: Patient admitted to medical surgical floor. Orthopedic surgeon seen and evaluated patient. Different options for management were discussed with patient . Patient was opted for surgery. Special Tester seen the patient for clearance for surgery. Echocardiogram revealed preserved ejection fraction of 60 to 65% with no evidence of left ventricular hypertrophy. No evidence of wall motion abnormality. Mild to moderate tricuspid vegetation. Right ventricular systolic pressure of 20. Patient was on Plavix and statin. Blood pressure was managed with low-dose of beta-krystal to decrease the risk of postoperative atrial fibrillation . Blood pressure appeared to be stable. Patient denied prior history of myocardial infarction . EKG was nonischemic and showed no evidence of prior myocardial infarction. Special Tester cleared patient for surgery. DVT prophylaxis provided Patient subsequently undergone manipulation under anesthesia of right ankle fracture. Patient noted have gross displacement of fracture ; fracture was not healing completely. Patient was recommended to have immobilization in a CAM walker boot and nonweightbearing status for about 3 weeks. After that tome imaging studies will be repeated. Depending on the study results, patient may at that time start gradual weightbearing. Brake Linings Coater seen and evaluated patient. Blood pressure was managed with beta-krystal and calcium channel krystal was added for better blood pressure control. Renal parameters and electrolytes were closely monitored. Electrolytes corrected as needed/magnesium. Seizure precaution maintained. No evidence of seizure activity while in the hospital. Per neurologist , patient likely had seizure activity , associated with alcohol use. She did not require any anticonvulsant at this time as per neurologist. Hemoglobin and hematocrit were closely monitored with goal to keep hemoglobin above 7. Hemoglobin and hematocrit remained at the baseline; prior to discharge hemoglobin 10.5, hematocrit 32.7. GI prophylaxis provided. Pain management was addressed. Supportive care provided. DVT prophylaxis provided. Bowel regimen instituted. Patient clinically stabilized and was ready for transfer to assisted facility for continuation of care. FINAL DIAGNOSES: Bimalleolar fracture of right ankle due to fall, grossly displaced Right ankle fracture dislocation Status post manipulation of right ankle fracture under anesthesia Hypertension Anemia Questionable coronary artery disease Hyperlipidemia Alcohol use History of seizure disorder DISCHARGE MEDICATIONS: See Medication Reconciliation list. DISCHARGE INSTRUCTIONS: Patient was discharged to the assisted facility. Follow up with medical doctor at the facility. Patient will need to be in a CAM boot for 3 weeks, after that time follow up with ortho surgeon and repeat imaging for further recommendations as to management of right ankle fracture and activity level. I have been assigned to dictate discharge summary for this account. I was not involved in the patient's management. Cindy Wynne NP Oct 17, 2018 13:30
--- NOTE | 2018-10-17 14:06 | NUR ---
P.T Note: late entry 1120 P.T evaluation completed and tx initiated. Please refer to P.T evaluation for current functional status. Addendum: 10/17/18 at 1407 by ANGELITA DIEGO PT Amended: Links added.
--- NOTE | 2018-10-17 18:52 | Cardiology Report ---
APPROVED REPORT EKG Measurement Heart [id number] [place] [id number] Normal sinus rhythm Normal ECG
--- NOTE | 2018-10-17 19:05 | Cardiology Report ---
APPROVED REPORT EKG Measurement Heart [id number] Normal sinus rhythm Normal ECG
--- NOTE | 2018-10-19 08:13 | Diagnostic Imaging Report ---
ULTRASOUND ABDOMEN: COMPLETE Indication: Abdominal pain. Technique: Grayscale and color Doppler images of the abdomen were obtained. Comparison: None Findings: Liver: The liver is normal in size and echogenicity. No focal abnormalities are noted. Gallbladder: The gallbladder is normal. No stones are visualized. The wall is not thickened. Common bile duct: Normal in size, measuring 4 mm. Pancreas: The visualized portion of pancreas is unremarkable. Kidneys: The kidneys are normal in size and echogenicity. There is no hydronephrosis. Spleen: The spleen is normal in size and echogenicity. Aorta: The aorta is normal in caliber. IMPRESSION: No acute sonographic findings
== END 2018-10-17 12:00 | DRG 563 ==
LOC: EDBD 15:48 → EDBEDREQ 15:59 → EMR 16:13 → 3E 16:40 → EDBEDREQ 16:50
PROC: 0QSGXZZ Reposition Right Tibia, External Approach (ICD-10-PCS; principal; 2018-10-15 19:00)
PROC: 0QSJXZZ Reposition Right Fibula, External Approach (ICD-10-PCS; principal; 2018-10-15 19:00)
DX: S82.841A Displaced bimalleolar fracture of right lower leg, initial encounter for closed fracture (principal); G40.89 Other seizures; F10.188 Alcohol abuse with other alcohol-induced disorder; W19.XXXA Unspecified fall, initial encounter; I10 Essential (primary) hypertension; E78.5 Hyperlipidemia, unspecified; Z88.6 Allergy status to analgesic agent; Z88.8 Allergy status to other drugs, medicaments and biological substances; D63.8 Anemia in other chronic diseases classified elsewhere; E88.09 Other disorders of plasma-protein metabolism, not elsewhere classified; I25.10 Atherosclerotic heart disease of native coronary artery without angina pectoris; K21.9 Gastro-esophageal reflux disease without esophagitis; I25.2 Old myocardial infarction; E87.6 Hypokalemia; Z79.02 Long term (current) use of antithrombotics/antiplatelets; E11.9 Type 2 diabetes mellitus without complications; H81.09 Meniere's disease, unspecified ear; Z86.73 Personal history of transient ischemic attack (TIA), and cerebral infarction without residual deficits; E66.9 Obesity, unspecified
CPT/HCPCS: 36415; 71045; 76700; 80048; 80053; 80061; 81001; 82378; 82607; 82728; 82746; 82962; 82977; 83036; 83540; 83550; 83735; 83880; 84100; 84443; 84550; 85025; 85610; 85730; 86140; 86703; 86705; 86709; 86803; 86850; 86900; 86901; 87081; 87340; 93005; 93306; 94003; 94150; 99285; C9399